=== PATIENT | male | born 1970 | race American Indian/Alaskan Native ===

== ENCOUNTER 2019-02-18 11:08 | Emergency (ER) | payer OTHER ==
--- NOTE | 2019-02-18 11:47 | Event Note ---
ED Screening Note ED Screening Note: pt states that he has constipation intermittently for a month has been taking miralax states he has nausea and a few episodes of vomiting PMHx DM no allergies to meds This initial assessment/diagnostic orders/clinical plan/treatment(s) is/are subject to change based on patients health status, clinical progression and re- assessment by fellow clinical providers in the ED. Further treatment and workup at subsequent clinical providers discretion. Patient/guardian urged not to elope from the ED as their condition may be serious if not clinically assessed and managed. Initial orders include: XR abd, labs
[2019-02-18 11:49] VITALS: BP 149/88
--- NOTE | 2019-02-18 12:28 | XRay Report ---
ABDOMEN 3 views, 02/18/2019 INDICATION: constipation, n/v FINDINGS: The bowel gas pattern is within normal limits. There is a small amount of stool in the colon. There a re no dilated loops of large or small bowel. No free air is identified. No radiopaque urinary tract c alculi are seen. Lung bases are clear. IMPRESSION: No acute findings. Signer Name: Jose R Jerry MD Signed: 02/18/2019 12:24 PM Workstation Name: [id number]
[2019-02-18 12:53] LABS: Basophils % (Auto) 0.4 % (0.0-1.8); Eosinophils # (Auto) 0.2 K/mm3 (0.0-0.4); Eosinophils % (Auto) 2.2 % (0.0-4.3); Hematocrit 44.4 % (35.5-45.6); Hemoglobin 15.2 gm/dl (11.8-15.2); Lymphocytes # (Auto) 1.7 K/mm3 (1.2-5.4); Mean Corpuscular HGB Conc 34 % (32-34); Mean Corpuscular Volume 96 fl (84-94); Monocytes # (Auto) 0.7 K/mm3 (0.0-0.8); Platelet Count 215 K/mm3 (140-440); Red Blood Count 4.65 M/mm3 (3.65-5.03); Red Cell Distribution Width 14.3 % (13.2-15.2)
[2019-02-18 13:15] LABS: Alanine Aminotransferase 22 units/L (7-56); Albumin 4.4 g/dL (3.9-5); BUN/Creatinine Ratio 11; Blood Urea Nitrogen 10 mg/dL (9-20); Calcium 9.4 mg/dL (8.4-10.2); Hemolysis Index 21
--- NOTE | 2019-02-18 17:36 | Emergency Department Report ---
<DEBORA GALVEZ - Last Filed: 02/18/19 17:51> ED General Adult HPI - General Chief complaint: Abdominal Pain Stated complaint: BLURRY VISION/CANT URINATE Time Seen by Provider: 02/18/19 11:45 Source: patient Mode of arrival: Ambulatory Limitations: No Limitations - History of Present Illness Initial comments: 48yo BM states that he has had constipation x 1 month and blurred vision x 1 day. He states that he is a diabetic and takes metformin but has not taken a dose in 2-3 weeks. He further states that he is only concerned about his constipation. The pt was explained that his labs revealed elevated BG of 398 and a x -ray with small stool present. The pt then verbalized that he would not like treatment for his hyperglycemia but only his constipation. It was reiterated to the patient the importance of lowering his BG to a stable level. The patient was offered a referral and resources to see an repair specialist but he refused. The pt then proceeded to leave without being seen. Severity scale (0 -10): 5 ED Review of Systems Constitutional: see HPI ED Past Medical Hx - Past Medical History Previous Medical History?: Yes Hx Hypertension: Yes - Surgical History Past Surgical History?: No - Social History Smoking Status: Current Every Day Smoker Substance Use Type: Alcohol ED Physical Exam - General Limitations: No Limitations ED Medical Decision Making - Lab Data Result diagrams: 02/18/19 12:33 02/18/19 12:33 - Medical Decision Making 48yo BM states that he has had constipation x 1 month and blurred vision x 1 day. He states that he is a diabetic and takes metformin but has not taken a dose in 2-3 weeks. He further states that he is only concerned about his constipation. The pt was explained that his labs revealed elevated BG of 398 and a x -ray with small stool present. The pt then verbalized that he would not like treatment for his hyperglycemia but only his constipation. It was reiterated to the patient the importance of lowering his BG to a stable level. The patient was offered a referral and resources to see an repair specialist but he refused. The pt then proceeded to leave without being seen. ED Disposition Clinical Impression: Constipation, Diabetes mellitus, Dizziness Disposition: DC-07 LEFT AGAINST MED ADVICE Is pt being admited?: No Does the pt Need Aspirin: No Condition: Undetermined Instructions: Diabetes Mellitus Type 2 in Adults (ED) Referrals: PRIMARY CARE,MD [Primary Care Provider] - 3-5 Days Time of Disposition: 17:50 <EMILY STANLEY - Last Filed: 02/18/19 23:25> ED Review of Systems ROS: Stated complaint: BLURRY VISION/CANT URINATE Other details as noted in HPI ED Course Vital Signs 02/18/19 11:45 Temperature 98.2 F Pulse Rate 109 H Respiratory 17 Rate Blood Pressure 149/88 Blood Pressure 149/88 [Left] O2 Sat by Pulse 98 Oximetry ED Medical Decision Making - Lab Data Result diagrams: 02/18/19 12:33 02/18/19 12:33 Critical care attestation.: If time is entered above; I have spent that time in minutes in the direct care of this critically ill patient, excluding procedure time. ED Disposition Is pt being admited?: No Does the pt Need Aspirin: No
== END 2019-02-19 02:32 | disposition left against medical advice (07) ==
LOC: ED 11:08
DX: E11.65 Type 2 diabetes mellitus with hyperglycemia (principal); I10 Essential (primary) hypertension; F17.200 Nicotine dependence, unspecified, uncomplicated
CPT/HCPCS: 36415; 74019; 80053; 85025

== ENCOUNTER 2019-04-10 05:53 | Observation (INO) | payer SELFPAY ==
--- NOTE | 2019-04-10 06:55 | XRay Report ---
CHEST 1 VIEW INDICATION / CLINICAL INFORMATION: Chest Pain. COMPARISON: 10/22/2017 from [facility] FINDINGS: SUPPORT DEVICES: None. HEART / MEDIASTINUM: No significant abnormality. LUNGS / PLEURA: No significant pulmonary or pleural abnormality.. No pneumothorax. ADDITIONAL FINDINGS: No significant additional findings. IMPRESSION: 1. No acute findings. Signer Name: Jose R Jerry MD Signed: 04/10/2019 6:51 AM Workstation Name: [id number]
[2019-04-10 08:17] LABS: Basophils % (Auto) 0.4 % (0.0-1.8); Eosinophils % (Auto) 0.2 % (0.0-4.3); Hematocrit 42.5 % (35.5-45.6); Hemoglobin 14.2 gm/dl (11.8-15.2); Lymphocytes % (Auto) 17.5 % (13.4-35.0); Mean Corpuscular HGB Conc 33 % (32-34); Mean Corpuscular Volume 96 fl (84-94); Monocytes # (Auto) 0.8 K/mm3 (0.0-0.8); Monocytes % (Auto) 7.3 % (0.0-7.3); Platelet Count 228 K/mm3 (140-440); Red Blood Count 4.41 M/mm3 (3.65-5.03); Red Cell Distribution Width 13.9 % (13.2-15.2)
--- NOTE | 2019-04-10 08:17 | Emergency Department Report ---
<ELPIDIO CARROLL - Last Filed: 04/10/19 08:08> ED Chest Pain HPI - General Chief Complaint: Chest Pain Stated Complaint: CHEST PAIN Time Seen by Provider: 04/10/19 08:03 Source: patient, EMS Mode of arrival: Ambulatory Limitations: No Limitations - History of Present Illness Initial Comments: 48-year-old obese -L[place] male with a known past medical history of diabetes, hypertension presents to the emergency department complaining of an onset of chest pain resulting in a syncopal episode about 30 minutes prior to arrival which began while he was exercising. Mr. Kendall was out walking to get some exercise when he developed a strange feeling to his chest which was followed by pressure and pain and then recalls a bystander assisting him off the ground after having called EMS due to him passing out. He reports no bodily trauma from the syncopal episode but continues to have chest pain and states that he feels "terrible". Reports no hemoptysis, no hematemesis no hematochezia. No fever, chills, sweats. No nausea or vomiting does experience some dull headache and dizziness as well he has received aspirin and nitro prior to arrival but his symptoms continue to linger. -: Sudden Onset: during exertion Pain Location: substernal, left chest Pain Radiation: none Severity: moderate Quality: tightness, aching Consistency: constant Improves With: nothing Worsens With: nothing Other Symptoms: syncope. denies: acid taste in mouth, leg swelling, palpitat ions, burping Treatments Prior to Arrival: aspirin, nitroglycerin - Related Data Allergies Allergy/AdvReac Type Severity Reaction Status Date / Time No Known Allergies Allergy Unverified 04/10/19 06:12 Heart Score - HEART Score History: Highly suspicious EKG: Non-specific Age: 45-65 Risk factors: 1-2 risk factors ED Review of Systems Comment: All other systems reviewed and negative ED Past Medical Hx - Past Medical History Previous Medical History?: Yes Hx Hypertension: Yes Hx Diabetes: Yes - Surgical History Past Surgical History?: No - Social History Smoking Status: Current Every Day Smoker Substance Use Type: None ED Physical Exam - General Limitations: No Limitations General appearance: alert, in no apparent distress - Head Head exam: Present: atraumatic, normocephalic - Eye Eye exam: Present: normal appearance, PERRL, EOMI Pupils: Present: normal accommodation. Absent: irregular - ENT ENT exam: Present: normal exam, normal orophraynx, mucous membranes moist - Neck Neck exam: Present: normal inspection - Respiratory Respiratory exam: Present: normal lung sounds bilaterally. Absent: respiratory distress, wheezes, rales, accessory muscle use, decreased breath sounds - Cardiovascular Cardiovascular Exam: Present: regular rate, normal rhythm. Absent: systolic murmur, diastolic murmur, rubs, gallop - GI/Abdominal GI/Abdominal exam: Present: soft, normal bowel sounds. Absent: distended, tenderness, guarding, hyperactive bowel sounds, hypoactive bowel sounds - Rectal Rectal exam: Present: deferred - Extremities Exam Extremities exam: Present: normal inspection, full ROM, normal capillary refill. Absent: pedal edema, joint swelling, calf tenderness - Back Exam Back exam: Present: normal inspection. Absent: CVA tenderness (R), CVA tenderness (L) - Neurological Exam Neurological exam: Present: alert, oriented X3, CN II-XII intact, normal gait - Psychiatric Psychiatric exam: Present: normal affect, normal mood - Skin Skin exam: Present: warm, dry, intact, normal color. Absent: rash DAVID score - David Score Age > 65: (0) No 2 or more Angina events in past 24 hrs: (0) No Known CAD with more than 50% Stenosis: (0) No ED Medical Decision Making - Medical Decision Making The patient presented with chest pain of which appears to be of a cardiovascular etiology. Based on their history, lab analysis, EKG (which showed no evidence of ischemia or infarction), and imaging, in addition to the patient's physical exam, there is possible evidence at this time for a malignant etiology for the patient's chest pain. There is no acute evidence for pneumothorax, esophageal rupture, cardiac tamponade, thoracic artery dissection, or any other emergent cardiac, pulmonary or aortic pathology at this time. [Based on the nature the evolution of the chest pain and the associated symptomology and presentation very likely plan is admission for further evaluation. It is likely that cardiac enzymes would be abnormal in chest pain of this duration if their chest pain was attributable to ACS. The patient also has moderate risk for coronary artery disease based on their risk factor profile with no substantial risk factors (hypertension, hypercholesterolemia, diabetes, or current smoker, aspirin use in the past 7 days, and symptomatic angina. This case was discussed with attending Dr. Hathaway who has [id number] with Mr. Kendall and will also follow along in the care of this patient he will be transferred from the fast track to the maintenance for cardiac monitoring and further evaluation. ED Disposition Clinical Impression: Chest pain Qualifiers: Chest pain type: unspecified Qualified Code(s): R07.9 - Chest pain, unspecified Hyperglycemia due to type 2 diabetes mellitus Qualifiers: Diabetes mellitus detention insulin use: without exterminator termite use Qualified Code(s): E11.65 - Type 2 diabetes mellitus with hyperglycemia Syncope Qualifiers: Syncope type: unspecified Qualified Code(s): R55 - Syncope and collapse Disposition: OP ADMIT IP TO THIS HOSP Condition: Stable <LINDSEY HATHAWAY - Last Filed: 04/10/19 13:08> Heart Score - HEART Score History: Slightly suspicious EKG: Non-specific Age: 45-65 Risk factors: > 3 risk factors or hx of atherosclerotic disease Troponin: < normal limit HEART Score: 4 - Critical Actions Critical Actions: 4-6 pts:12-16.6% risk of adverse cardiac event. Should be admitted ED Review of Systems ROS: Stated complaint: CHEST PAIN Other details as noted in HPI Comment: All other systems reviewed and negative Constitutional: denies: chills, fever Eyes: denies: eye pain, eye discharge, vision change ENT: denies: ear pain, throat pain Respiratory: denies: cough, shortness of breath, wheezing Cardiovascular: chest pain. denies: palpitations Endocrine: no symptoms reported Gastrointestinal: denies: abdominal pain, nausea, diarrhea Genitourinary: denies: urgency, dysuria Musculoskeletal: denies: back pain, joint swelling, arthralgia Skin: denies: rash, lesions Neurological: denies: headache, weakness, paresthesias Psychiatric: denies: anxiety, depression Hematological/Lymphatic: denies: easy bleeding, easy bruising ED Physical Exam - General General appearance: alert, in no apparent distress - Head Head exam: Present: atraumatic, normocephalic - Eye Eye exam: Present: normal appearance - ENT ENT exam: Present: mucous membranes moist - Neck Neck exam: Present: normal inspection. Absent: meningismus - Respiratory Respiratory exam: Present: normal lung sounds bilaterally. Absent: respiratory distress - Cardiovascular Cardiovascular Exam: Present: regular rate, normal rhythm. Absent: systolic murmur, diastolic murmur, rubs, gallop - GI/Abdominal GI/Abdominal exam: Present: soft, normal bowel sounds - Rectal Rectal exam: Present: deferred - Extremities Exam Extremities exam: Present: normal inspection - Back Exam Back exam: Present: normal inspection - Neurological Exam Neurological exam: Present: alert, oriented X3 - Psychiatric Psychiatric exam: Present: normal affect, normal mood - Skin Skin exam: Present: warm, dry, intact, normal color. Absent: rash ED Course Vital Signs 04/10/19 04/10/19 04/10/19 05:56 08:37 09:12 Temperature 97.8 F Pulse Rate 129 H 92 H Respiratory 20 16 Rate Blood Pressure 129/69 141/75 O2 Sat by Pulse 97 96 96 Oximetry 04/10/19 04/10/19 04/10/19 09:15 09:30 10:00 Temperature Pulse Rate 94 H 93 H 90 Respiratory 18 17 Rate Blood Pressure 126/67 131/66 134/66 O2 Sat by Pulse Oximetry 04/10/19 04/10/19 04/10/19 10:30 11:00 11:30 Temperature Pulse Rate 91 H 85 92 H Respiratory 18 17 19 Rate Blood Pressure 123/75 123/75 123/75 O2 Sat by Pulse 98 100 99 Oximetry 04/10/19 04/10/19 12:00 12:30 Temperature Pulse Rate 97 H 89 Respiratory 18 18 Rate Blood Pressure 123/75 123/75 O2 Sat by Pulse 97 97 Oximetry - Reevaluation(s) Reevaluation #1: CTA was ordered in consideration of the patient's chest pain and syncope. However the patient declined the test. His d-dimer came back normal. He will be admitted for observation and further evaluation. 04/10/19 12:58 ED Medical Decision Making - Lab Data Result diagrams: 04/10/19 07:02 04/10/19 07:02 Laboratory Results - last 24 hr 04/10/19 04/10/19 04/10/19 07:02 07:02 08:30 WBC 11.2 H RBC 4.41 Hgb 14.2 Hct 42.5 MCV 96 H MCH 32 MCHC 33 RDW 13.9 Plt Count 228 Lymph % (Auto) 17.5 [place] % (Auto) 7.3 Eos % (Auto) 0.2 Baso % (Auto) 0.4 Lymph # 2.0 [place] # 0.8 Eos # 0.0 Baso # 0.0 Seg Neutrophils % 74.6 H Seg Neutrophils # 8.4 H D-Dimer Sodium 141 Potassium 4.3 Chloride 102.6 Carbon Dioxide 17 L Anion Gap 26 BUN 12 Creatinine 0.9 Estimated GFR > 60 BUN/Creatinine Ratio 13 Glucose 327 H Calcium 9.6 Troponin T < 0.010 < 0.010 NT-Pro-B Natriuret Pep 04/10/19 04/10/19 08:30 08:30 WBC RBC Hgb Hct MCV MCH MCHC RDW Plt Count Lymph % (Auto) [place] % (Auto) Eos % (Auto) Baso % (Auto) Lymph # [place] # Eos # Baso # Seg Neutrophils % Seg Neutrophils # D-Dimer 154.28 Sodium Potassium Chloride Carbon Dioxide Anion Gap BUN Creatinine Estimated GFR BUN/Creatinine Ratio Glucose Calcium Troponin T NT-Pro-B Natriuret Pep 39.43 - EKG Data -: EKG Interpreted by Me EKG shows normal: sinus rhythm, axis, intervals, QRS complexes, ST-T waves Rate: normal - Radiology Data Radiology results: report reviewed (Granulomatous changes), image reviewed Critical care attestation.: If time is entered above; I have spent that time in minutes in the direct care of this critically ill patient, excluding procedure time. ED Disposition Is pt being admited?: Yes Does the pt Need Aspirin: Yes Time of Disposition: 13:05
[2019-04-10 08:19] LABS: BUN/Creatinine Ratio 13; Blood Urea Nitrogen 12 mg/dL (9-20); Calcium 9.6 mg/dL (8.4-10.2); Hemolysis Index 14
[2019-04-10] MEDS ORDERED: INSULIN REGULAR, HUMAN 100 UNITS/1 ML IV ONE ×2 (13:00→16:00)
[2019-04-10] MEDS ORDERED: ASPIRIN 325 MG TAB PO ONE (13:09)
--- NOTE | 2019-04-10 16:26 | History and Physical Report ---
History of Present Illness Date of examination: 04/10/19 Date of admission: 04/10/19 11:32 History of present illness: 48-year-old obese -[place]rist[place] male with a known past medical history of diabetes, hypertension presents to the emergency department complaining of an onset of chest pain resulting in a syncopal episode about 30 minutes prior to arrival which began while he was exercising. Mr. Kendall was out walking to get some exercise when he developed a strange feeling to his chest which was followed by pressure and pain and then recalls a bystander assisting him off the ground after having called EMS due to him passing out. He reports no bodily trauma from the syncopal episode but continues to have chest pain and states that he feels "terrible". Reports no hemoptysis, no hematemesis no hematochezia. No fever, chills, sweats. No nausea or vomiting does experience some dull headache and dizziness as well he has received aspirin and nitro prior to arrival but his symptoms continue to linger. -: Sudden Onset: during exertion Pain Location: substernal, left chest Pain Radiation: none Severity: moderate Quality: tightness, aching Consistency: constant Improves With: nothing Worsens With: nothing Other Symptoms: syncope. denies: acid taste in mouth, leg swelling, palpitations, burping Treatments Prior to Arrival: aspirin, nitroglycerin - Related Data Allergies Allergy/AdvReac Type Severity Reaction Status Date / Time No Known Allergies Allergy Unverified 04/10/19 06:12 Heart Score - HEART Score History: Highly suspicious EKG: Non-specific Age: 45-65 Risk factors: 1-2 risk factors ED Review of Systems Comment: All other systems reviewed and negative ED Past Medical Hx - Past Medical History Previous Medical History?: Yes Hx Hypertension: Yes Hx Diabetes: Yes - Surgical History Past Surgical History?: No - Social History Smoking Status: Current Every Day Smoker Substance Use Type: None Medications and Allergies Allergies Allergy/AdvReac Type Severity Reaction Status Date / Time No Known Allergies Allergy Unverified 04/10/19 06:12 Exam - Constitutional Vitals: Temp Pulse Resp BP Pulse Ox 97.8 F 89 18 123/75 97 04/10/19 05:56 04/10/19 12:30 04/10/19 12:30 04/10/19 12:30 04/10/19 12:30 DAVID score - David Score Age > 65: (0) No 2 or more Angina events in past 24 hrs: (0) No Known CAD with more than 50% Stenosis: (0) No Results - Labs CBC & Chem 7: 04/10/19 07:02 04/10/19 07:02 Labs: Laboratory Last Values WBC 11.2 K/mm3 (4.5-11.0) H 04/10/19 07:02 RBC 4.41 M/mm3 (3.65-5.03) 04/10/19 07:02 Hgb 14.2 gm/dl (11.8-15.2) 04/10/19 07:02 Hct 42.5 % (35.5-45.6) 04/10/19 07:02 MCV 96 fl (84-94) H 04/10/19 07:02 MCH 32 pg (28-32) 04/10/19 07:02 MCHC 33 % (32-34) 04/10/19 07:02 RDW 13.9 % (13.2-15.2) 04/10/19 07:02 Plt Count 228 K/mm3 (140-440) 04/10/19 07:02 Lymph % (Auto) 17.5 % (13.4-35.0) 04/10/19 07:02 [place] % (Auto) 7.3 % (0.0-7.3) 04/10/19 07:02 Eos % (Auto) 0.2 % (0.0-4.3) 04/10/19 07:02 Baso % (Auto) 0.4 % (0.0-1.8) 04/10/19 07:02 Lymph # 2.0 K/mm3 (1.2-5.4) 04/10/19 07:02 [place] # 0.8 K/mm3 (0.0-0.8) 04/10/19 07:02 Eos # 0.0 K/mm3 (0.0-0.4) 04/10/19 07:02 Baso # 0.0 K/mm3 (0.0-0.1) 04/10/19 07:02 Seg Neutrophils % 74.6 % (40.0-70.0) H 04/10/19 07:02 Seg Neutrophils # 8.4 K/mm3 (1.8-7.7) H 04/10/19 07:02 D-Dimer 154.28 ng/mlDDU (0-234) 04/10/19 08:30 Sodium 141 mmol/L (137-145) 04/10/19 07:02 Potassium 4.3 mmol/L (3.6-5.0) 04/10/19 07:02 Chloride 102.6 mmol/L (98-107) 04/10/19 07:02 Carbon Dioxide 17 mmol/L (22-30) L 04/10/19 07:02 Anion Gap 26 mmol/L 04/10/19 07:02 BUN 12 mg/dL (9-20) 04/10/19 07:02 Creatinine 0.9 mg/dL (0.8-1.5) 04/10/19 07:02 Estimated GFR > 60 ml/min 04/10/19 07:02 BUN/Creatinine Ratio 13 % 04/10/19 07:02 Glucose 327 mg/dL (75-100) H 04/10/19 07:02 POC Glucose 244 (70-105) H 04/10/19 15:21 Calcium 9.6 mg/dL (8.4-10.2) 04/10/19 07:02 Troponin T < 0.010 ng/mL (0.00-0.029) 04/10/19 13:20 NT-Pro-B Natriuret Pep 39.43 pg/mL (0-450) 04/10/19 08:30
[2019-04-10 20:34] VITALS: BP 134/64
[2019-04-10] MEDS ORDERED: ONDANSETRON 4 MG/2 ML INJ IV PRN (22:54)
[2019-04-10] MEDS ORDERED: METOCLOPRAMIDE 10 MG/2 ML INJ IV PRN (22:54)
[2019-04-10] MEDS ORDERED: HYDROmorphone 1 MG/1 ML INJ IV PRN (22:54)
[2019-04-10] MEDS ORDERED: oxyCODONE /ACETAMINOPHEN 5-325MG TAB PO PRN (22:54)
[2019-04-10] MEDS ORDERED: ACETAMINOPHEN 325 MG TAB PO PRN (22:54)
[2019-04-10] MEDS ORDERED: HEPARIN 5,000 UNIT/1 ML VIAL SUB-Q SCH (23:00)
[2019-04-10] MEDS ORDERED: FAMOTIDINE 20 MG/2 ML INJ IV SCH (23:00)
[2019-04-11 05:55] LABS: Alanine Aminotransferase 28 units/L (7-56); Albumin 4.5 g/dL (3.9-5)
[2019-04-11 06:04] LABS: Bilirubin,Direct < 0.2 mg/dL (0-0.2)
== END 2019-04-10 18:00 | disposition left against medical advice (07) ==
LOC: ED 05:53 → 4A 11:32
PROVIDERS: ADMIT Internal Medicine; ATTEND Internal Medicine
DX: R07.89 Other chest pain (principal); I10 Essential (primary) hypertension; E11.65 Type 2 diabetes mellitus with hyperglycemia; R55 Syncope and collapse; F17.200 Nicotine dependence, unspecified, uncomplicated; Z79.899 Other long term (current) drug therapy
CPT/HCPCS: 36415; 71045; 80048; 80076; 82962; 83880; 84484; 85025; 85379; 93005; 93010; 96374; 99285; G0378; J1815